=== PATIENT | female | born 1940 | race Caucasian/White ===

== ENCOUNTER 2016-09-18 05:39 | Day surgery (SDC) | payer BC ==
[~2016-09-18] VITALS: Ht 149.9 cm; Wt 61.2 kg
[~2016-09-18 05:39] MED LIST: ADVIL,NUPRIN,M200 MG PO; FLONASE ALLERG9.9 ML BOTH NARES; NEXIUM20 MG PO; OCEAN NASAL 0.645 ML BOTH NARES; VENTOLIN HFA18 GM IH; VITAMIN D-32000 UNI2 PO
[2016-09-18 05:59] VITALS: BP 134/77
[2016-09-18 09:29] VITALS: BP 146/71
== END 2016-09-18 10:21 | disposition home or self-care (01) ==
LOC: SDC 05:39
DX: H35.342 Macular cyst, hole, or pseudohole, left eye (principal); K21.9 Gastro-esophageal reflux disease without esophagitis; F17.200 Nicotine dependence, unspecified, uncomplicated
CPT/HCPCS: J0690; J1100; J2250; J2795; J3010; J3300